=== PATIENT | male | born 1955 | race Caucasian/White ===

== ENCOUNTER 2022-04-07 11:53 | Emergency (ER) | payer OTHER, SELFPAY ==
--- NOTE | 2022-04-07 12:11 | PC.NURSE ---
pt left, stated that if he needed to be seen, he would be back
== END 2022-04-07 12:00 | disposition left against medical advice (07) ==
LOC: ANHED 15:08
DX: Z53.21 Procedure and treatment not carried out due to patient leaving prior to being seen by health care provider (principal)
CPT/HCPCS: 99199

== ENCOUNTER 2023-02-27 12:10 | Outpatient (CLI) | payer MEDICARE, SELFPAY ==
[2023-02-27 16:46] LABS: Alanine Aminotransferase 24 U/L (6-50); Albumin Level 4.3 g/dL (3.5-5.1); Alkaline Phosphatase 185 U/L (38-126); Anion Gap 9 mmol/L (8-16); Aspartate Amino Transferase 64 U/L (17-59); Bilirubin,Total 0.5 mg/dL (0.2-1.3); Blood Urea Nitrogen 19 mg/dL (9-20); Calcium 9.6 mg/dL (8.4-10.2); Carbon Dioxide 31 mmol/L (22-30); Chloride 97 mmol/L (98-107); Cholesterol 184 mg/dL (0-200); Estimated Glomerular Filt Rate 51; Glucose 296 mg/dL (65-110); HDL Direct 52 mg/dL; Sodium 137 mmol/L (137-145); Triglycerides 121 mg/dL (<150)
[2023-02-27 16:59] LABS: LDL Cholesterol Direct 93 mg/dL
[2023-02-27 17:25] LABS: Free T4 Free Thyroxine 1.48 ng/mL (0.78-2.19)
[2023-02-27 17:37] LABS: Creatinine Urine 138.6 mg/dL
[2023-02-27 17:42] LABS: Microalbumin Urine Random 6.9 mg/L (0-16.7)
[2023-02-27 18:23] LABS: Vitamin B12 > 1000.0 pg/mL (239-931)
== END 2023-02-27 12:11 | disposition home or self-care (01) ==
LOC: ANHWCLAB 12:14
PROVIDERS: PCP Internal Medicine Gastroenterology; Visit Provider Nurse Practitioner Family
DX: E11.9 Type 2 diabetes mellitus without complications (principal); Z90.410 Acquired total absence of pancreas
CPT/HCPCS: 36415; 80053; 80061; 82043; 82607; 84439; 84443

== ENCOUNTER 2023-06-26 13:30 | Outpatient (RCR) | payer MEDICARE, OTHER, MEDICAID, SELFPAY ==
[2023-04-01 13:47] VITALS: BMI 27.0
[2023-04-01 13:48] VITALS: BMI 27.0
[2023-05-20 13:45] VITALS: BMI 27.2
[2023-05-20 13:46] VITALS: BMI 27.2
== END 2023-06-30 09:26 | disposition home or self-care (01) ==
LOC: ANHDMC 13:30
PROVIDERS: PCP Internal Medicine Gastroenterology; Visit Provider Internal Medicine
DX: E10.65 Type 1 diabetes mellitus with hyperglycemia (principal); Z90.410 Acquired total absence of pancreas; Z71.3 Dietary counseling and surveillance; Z71.89 Other specified counseling
CPT/HCPCS: 97802; 97803; G0108